=== PATIENT | male | born 1975 | race Hispanic/Latino ===

== ENCOUNTER 2017-09-29 05:25 | Emergency (ER) | payer OTHER, SELFPAY ==
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
== END 2017-09-29 06:40 | disposition home or self-care (01) ==
LOC: ERS 05:25
DX: S83.91XA Sprain of unspecified site of right knee, initial encounter (principal); E11.9 Type 2 diabetes mellitus without complications; Z79.84 Long term (current) use of oral hypoglycemic drugs; V53.5XXA Driver of pick-up truck or van injured in collision with car, pick-up truck or van in traffic accident, initial encounter

== ENCOUNTER 2022-05-13 12:49 | Emergency (ER) | payer BC | END 2022-05-13 13:18 | disposition home or self-care (01) | LOC: ERS 12:49 | DX: K08.89 Other specified disorders of teeth and supporting structures (principal) | CPT/HCPCS: 99282 ==

== ENCOUNTER 2022-09-10 12:23 | Emergency (ER) | payer BC, OTHER | END 2022-09-10 13:37 | disposition home or self-care (01) | LOC: ERS 12:23 | DX: U07.1 COVID-19 (principal); E11.9 Type 2 diabetes mellitus without complications | CPT/HCPCS: 99283; U0003; U0005 ==